=== PATIENT | female | born 1965 | race Caucasian/White ===

== ENCOUNTER 2018-04-26 07:41 | Day surgery (SDC) | payer OTHER ==
[~2018-04-26] VITALS: Ht 162.6 cm; Wt 79.4 kg
[~2018-04-26 07:41] MED LIST: CALCIUM + VITA1 EACH PO; ESTRADIOL1 MG PO; IMITREX100 MG PO; LEVOTHYROXINE112 MCG PO; ONCE DAILY1 EACH PO; PROGESTERONE200 MG PO
--- NOTE | 2018-04-26 08:58 | NUR ---
04/26/18 0858 Sindhu Grullon 0849- PT ARRIVES TO PACU ALERT AND ORIENTED. REPORTS NO PAIN OR NAUSEA. OXYGEN SAT HIGH 90'S ON 3L VIA NC. 0852- OXYGEN TURNED OFF. OXYGEN SAT REMAINS MID 90'S ON RA.
--- NOTE | 2018-04-27 08:42 | OR ---
[facility] [address], [place] [address] Signed DATE OF OPERATION: 04/26/2018 SURGEON: Yasmani Herrera MD PREOPERATIVE DIAGNOSIS: Colon screening. POSTOPERATIVE DIAGNOSIS: Mild proctitis. PROCEDURE: Total colonoscopy to cecum with biopsy of rectum. ANESTHESIA: Intravenous sedation, fentanyl 150 mcg, Versed 5 mg. INDICATION: This 52-year-old white woman is a patient of Dr. Mckeon and Dr. Major. She is referred for screening colonoscopy. She has no family history of colon cancer and no symptoms of bleeding, diarrhea, or constipation. She is known to me from the past having undergone left breast biopsy for benign disease in 2003. She understands the risks of colonoscopy including, but not limited to bleeding, infection, and perforation and wished to proceed. FINDINGS: The prep was excellent. Complete colonoscopy was undertaken of the cecum. There was no evidence of diverticular problems, polyps, or cancer. There was mild proctitis probably of no clinical consequence. Biopsies were obtained nevertheless. DESCRIPTION OF PROCEDURE: The patient was brought to the endoscopy suite and placed in lateral decubitus position given intravenous sedation to the point of slurred speech and nystagmus. Digital rectal examination was normal. An Olympus video colonoscope was passed in the rectum and manipulated throughout the colon ultimately intubating the cecum itself. The ileocecal valve and appendiceal orifice were normal. The scope was withdrawn from that point. Examination throughout showed no sign of abnormality specifically no polyps, diverticular formation, colitis, or cancer. Retroflex view of the rectum did show mild inflammatory changes of the low rectum. Biopsies were obtained though it is unlikely this represents a pathologic Electronically Signed By: YASMANI HERRERA MD 04/27/18 0842 PATIENT NAME: ROGELIO MARTINES OPERATIVE REPORT DATE OF : 69 REPORT #: [id number] PHYSICIAN: YASMANI HERRERA MD PCP: MELLO MCKEON MD REPORT IS CONFIDENTIAL AND NOT TO BE RELEASED WITHOUT AUTHORIZATION [facility] [address] [place] [id number] Signed problem actually. The scope was removed and the patient was taken to recovery room in good condition. CONCLUDING DIAGNOSIS: Essentially normal colon except for mild proctitis probably bowel prep related. PLAN: Recommend repeat colonoscopy in 10 years sooner if clinically indicated. She will return to the ongoing care of Dr. Shane. MD ROJELIO De Santiago/MODL /[id number] cc: MD Dr. Mike Samuels Copies: NAT MAJOR MD ~ Electronically Signed By: YASMANI HERRERA MD 04/27/18 0842 PATIENT NAME: ROGELIO MARTINES OPERATIVE REPORT DATE OF : 69 REPORT #: [id number] PHYSICIAN: YASMANI HERRERA MD PCP: MELLO MCKEON MD REPORT IS CONFIDENTIAL AND NOT TO BE RELEASED WITHOUT AUTHORIZATION
== END 2018-04-26 09:29 | disposition home or self-care (01) ==
LOC: OPS 07:41 → DS 07:41 → OPS 08:30
PROVIDERS: Surgery
PROC: 0DBP8ZX Excision of Rectum, Via Natural or Artificial Opening Endoscopic, Diagnostic (ICD-10-PCS; principal; 2018-04-26 08:30)
DX: Z12.11 Encounter for screening for malignant neoplasm of colon (principal); K62.6 Ulcer of anus and rectum; K52.9 Noninfective gastroenteritis and colitis, unspecified; K62.89 Other specified diseases of anus and rectum; E03.9 Hypothyroidism, unspecified; H15.002 Unspecified scleritis, left eye; Z88.1 Allergy status to other antibiotic agents
CPT/HCPCS: 99153; G0500; J2250; J3010; J7120